=== PATIENT | female | born 1985 | race Hispanic/Latino ===

== ENCOUNTER 2023-01-12 05:35 | Day surgery (SDC) | payer MEDICAID ==
[2023-01-10 13:21] LABS: BASOPHILS % (AUTO) 0.3 % (0.0-5.0); EOSINOPHILS % (AUTO) 1.4 % (0.0-8.0); HEMATOCRIT 35.1 % (36-48); LYMPHOCYTES % (AUTO) 19.5 % (21.0-51.0); MEAN CORPUSCULAR HEMOGLOBIN 29.1 pg (27.0-33.0); MEAN CORPUSCULAR HGB CONC 33.6 g/dL (32.0-36.0); MEAN CORPUSCULAR VOLUME 86.5 fL (79-99); MONOCYTES % (AUTO) 6.7 % (3.0-13.0); NEUTROPHILS % (AUTO) 71.8 % (40.0-77.0); PLATELET COUNT (AUTO) 197 K/uL (130-400); RED BLOOD CELL COUNT(AUTO) 4.06 MIL/uL (4.00-5.50); RED CELL DISTRIBUTION WIDTH 13.3 % (11.0-15.5); WHITE BLOOD COUNT (AUTO) 7.3 K/uL (4.8-10.8)
[2023-01-10 13:29] VITALS: BP 139/62
[2023-01-12] VITALS (27 sets, daily range): BP systolic 109–169; BP diastolic 53–97
[~2023-01-12] VITALS: Ht 162.6 cm; Wt 107.0 kg
[~2023-01-12 05:35] MED LIST: AEC81 PO; INSU100I3 SQ; LABE100T7 PO; METF-444 PO; NPH,100V SQ; ONDA4TAB10 PO; PREN-154 PO; PROG200C11 PO
[2023-01-12] MEDS ORDERED: 0.9%NACL 1000ML 1,000 ML IV ONE (05:39)
[2023-01-12] MEDS ORDERED: CEFAZOLIN SODIUM 2 GM VIAL ONE (05:39)
[2023-01-12] MEDS ORDERED: FENTANYL CITRATE PF 50 MCG/1 ML 2ML VIAL ONE (06:04)
[2023-01-12] MEDS ORDERED: PHENYLEPHRINE HCL 10 MG/ML 1ML VIAL IV ONE (06:19)
[2023-01-12] MEDS ORDERED: ONDANSETRON 4MG INJ ONE (06:46)
== END 2023-01-12 13:00 | disposition home or self-care (01) ==
LOC: DAH 05:35
PROVIDERS: ATTEND Obstetrics & Gynecology
DX: O34.32 Maternal care for cervical incompetence, second trimester (principal); Z20.822 Contact with and (suspected) exposure to COVID-19; O24.112 Pre-existing type 2 diabetes mellitus, in pregnancy, second trimester; O99.212 Obesity complicating pregnancy, second trimester; O10.012 Pre-existing essential hypertension complicating pregnancy, second trimester; O09.522 Supervision of elderly multigravida, second trimester; Z3A.14 14 weeks gestation of pregnancy
CPT/HCPCS: 85025; 86850; 86900; 86901; 87426; 36415; 59320; 82948 ×2; A4663; J3010; J7030; J2405; J2370; J0690; A4215; A4223; A4222; A4221; J7120; A4600